=== PATIENT | male | born 1990 | race African-American/Black ===

== ENCOUNTER 2021-09-19 06:53 | Emergency (ER) | payer OTHER ==
[~2021-09-19] VITALS: Ht 170.2 cm; Wt 72.6 kg
[2021-09-19 07:58] VITALS: BP 110/72
== END 2021-09-19 09:02 | disposition home or self-care (01) ==
LOC: ER 06:53
DX: J06.9 Acute upper respiratory infection, unspecified (principal); F12.10 Cannabis abuse, uncomplicated; Z20.822 Contact with and (suspected) exposure to COVID-19
CPT/HCPCS: 36415; 71046; 87426